=== PATIENT | male | born 1980 | race Caucasian/White ===

== ENCOUNTER 2017-02-03 15:38 | Emergency (ER) | payer OTHER ==
[2017-02-03 15:47] VITALS: BP 149/97; PULSE 104; TEMP 97.7; BMI 31.5
[2017-02-03] MEDS ORDERED: SODIUM CHLORIDE 1,000 ML IV STA (15:59)
[2017-02-03] MEDS ORDERED: PANTOPRAZOLE SODIUM 40 MG in SODIUM CHLORIDE 100 ML IVPB ONE (15:59)
[2017-02-03] MEDS ORDERED: ONDANSETRON 4 MG/2 ML VIAL IVPB ONE (15:59)
--- NOTE | 2017-02-03 16:00 | PDOC ---
History of Present Illness - History of Present Illness Initial Comments: 02/03/17 16:47 The patient is a 36 year old male, with a significant past medical history of cholecystectomy, who presents to the emergency department with nausea, vomiting , and diarrhea since yesterday.Patient is an employee here at [employer] and works in [employer]. He states that yesterday morning he began experiencing abdominal pain along with nausea, vomiting, and diarrhea. He did not go to bed until 5 am this morning. He states he last vomited around 11 am this morning and states that it was brown in color. He states that he currently feels very nauseous. He states that his last episode of diarrhea was around 2: 30pm and described it as very watery. He woke with this morning shaking with chills. He states that his cousin has also experienced similar symptoms 3 days ago. He denies any recent fevers,headache or dizziness. He denies any recent constipation. He denies any recent chest pain or shortness of breath. He denies any recent dysuria, frequency, urgency or hematuria. Allergies: NKA Family history: Paternal grandfather ( of stomach cancer), Paternal aunt: of breast cancer. Past surgical history: cholecystectomy (2 years ago) Social History: Former smoker. Occasional EtOH use. Denies recreational drug use. <Sonali Oliveros - Last Filed: 02/03/17 16:47> <Jovany Mosley - Last Filed: 02/05/17 07:47> - General Chief Complaint: Vomiting/Diarrhea Stated Complaint: N/V/D Time Seen by Provider: 02/03/17 15:50 Past History <Sonali Oliveros - Last Filed: 02/03/17 16:47> - Past Medical History COPD: No Other medical history: DENIES - Surgical History Cholecystectomy: Yes - Suicide/Smoking/Psychosocial Hx Smoking History: Never smoked Hx Alcohol Use: No Drug/Substance Use Hx: No Substance Use Type: Alcohol <Jovany Mosley - Last Filed: 02/05/17 07:47> - Past Medical History Allergies/Adverse Reactions: Allergies Allergy/AdvReac Type Severity Reaction Status Date / Time No Known Allergies Allergy Verified 02/03/17 15:38 Home Medications: Ambulatory Orders Ondansetron [Zofran Odt -] 4 mg SL TID PRN #10 od.tablet 02/03/17 Review of Systems - Review of Systems Comments:: 02/03/17 16:47 CONSTITUTIONAL: Present: chills Absent: fever, no fatigue EYES: Absent: visual changes ENT: Absent: ear pain, no sore throat CARDIOVASCULAR: Absent: chest pain, no palpitations RESPIRATORY: Absent: cough, no SOB GI: Present: abdominal pain, nausea, vomiting, diarrhea. Absent: no constipation GENITOURINARY: Absent: dysuria, no frequency, no hematuria MUSCULOSKELETAL: Absent: back pain, no arthralgia, no myalgia SKIN: Absent: rash <Sonali Oliveros - Last Filed: 02/03/17 16:47> *Physical Exam - Vital Signs Last Vital Signs Temp Pulse Resp BP Pulse Ox 97.7 F 104 H 16 149/97 100 02/03/17 15:39 02/03/17 15:39 02/03/17 15:39 02/03/17 15:39 02/03/17 15:39 - Physical Exam Comments: 02/03/17 16:48 GENERAL: Well developed, well nourished. Awake and alert. In no acute distress. HEENT: Normocephalic, atraumatic. PERRLA, EOMI. No conjunctival pallor. Sclera are non- icteric. Mildly dry mucous membranes. Oropharynx is clear. NECK: Supple. Full ROM. No JVD. Carotid pulses 2+ and symmetric, without bruits. No thyromegaly. No lymphadenopathy. CARDIOVASCULAR: Regular rate and rhythm. No murmurs, rubs, or gallops. PULMONARY: No evidence of respiratory distress. Lungs clear to auscultation bilaterally. No wheezing, rales or rhonchi. ABDOMINAL: Soft. Non-tender. Non-distended. No rebound or guarding. No organomegaly. Normoactive bowel sounds. : Unremarkable MUSCULOSKELETAL Normal range of motion at all joints. No bony deformities or tenderness. No CVA tenderness. EXTREMITIES: No cyanosis. No clubbing. No edema. No calf tenderness. SKIN: Warm and dry. Good turgor. Normal capillary refill. No rashes. No jaundice. NEUROLOGICAL: Alert, awake, appropriate. <Sonali Oliveros - Last Filed: 02/03/17 16:47> - Vital Signs Last Vital Signs Temp Pulse Resp BP Pulse Ox 97.7 F 104 H 16 149/97 100 02/03/17 15:39 02/03/17 15:39 02/03/17 15:39 02/03/17 15:39 02/03/17 15:39 <Jovany Mosley - Last Filed: 02/05/17 07:47> ED Treatment Course - LABORATORY CBC & Chemistry Diagram: 02/03/17 16:09 02/03/17 16:15 - Medications Given in the ED: ED Medications Discontinued Medications Generic Name Dose Route Start Last Admin Trade Name Leigha PRN Reason Stop Dose Admin Pantoprazole Sodium 40 mg/ 100 mls @ 200 mls/hr 02/03/17 15:59 02/03/17 16:09 Sodium Chloride IVPB 02/03/17 16:28 200 mls/hr ONCE ONE Administration Ondansetron HCl 4 mg 02/03/17 15:59 02/03/17 16:09 Zofran Injection IVPB 02/03/17 16:00 4 mg ONCE ONE Administration <Sonali Oliveros - Last Filed: 02/03/17 16:47> - LABORATORY CBC & Chemistry Diagram: 02/03/17 16:09 02/03/17 16:15 <Jovany Mosley - Last Filed: 02/05/17 07:47> Medical Decision Making - Medical Decision Making 02/03/17 17:17 Patient is much improved. No further nausea or vomiting or diarrhea. Abdominal pain is resolved. Abdomen remains soft and nontender To continue Zofran as needed, clear liquid diet to progress as tolerated, return to ER if pain returns, or if there is further unremitting nausea vomiting or diarrhea. <Jovany Mosley - Last Filed: 02/05/17 07:47> *DC/Admit/Observation/Transfer - Attestations Scribe Attestion: 02/03/17 16:49 Documentation prepared by Sonali Oliveros, acting as medical health researcher for Jovany Mcdonnell MD. <Sonali Oliveros - Last Filed: 02/03/17 16:47> - Discharge Dispostion Admit: No <Jovany Mosley - Last Filed: 02/05/17 07:47> Diagnosis at time of Disposition: Viral gastroenteritis - Discharge Dispostion Disposition: HOME Condition at time of disposition: Improved - Prescriptions Prescriptions: Ondansetron [Zofran Odt -] 4 mg SL TID PRN #10 od.tablet PRN Reason: Nausea And/Or Vomiting - Patient Instructions Printed Discharge Instructions: DI for Viral Gastroenteritis -- Adult - Post Discharge Activity Forms/Work/School Notes: Back to Work
[2017-02-03] MEDS ORDERED: ONDANSETRON 4 MG/2 ML VIAL ONE (16:03)
[2017-02-03] MEDS ORDERED: PANTOPRAZOLE SODIUM 40 MG VIAL ONE (16:03)
[2017-02-03 16:55] LABS: BASO % 0.1 % (0-2.0); EOS % 1.4 % (0-4.5); MCH 30.9 pg (25.7-33.7); MCHC 34.5 g/dl (32.0-35.9); MEAN CELL VOLUME 89.4 fl (80-96); MEAN PLT VOLUME 8.3 fl (7.5-11.1); NEUT % 72.5 % (42.8-82.8); PLATELET COUNT 387 K/MM3 (134-434); WHITE BLOOD COUNT 8.2 K/mm3 (4.0-10.8)
[2017-02-03 17:00] LABS: ALBUMIN 4.8 g/dl (3.5-5.0); ALK PHOS 75 U/L (32-92); ANION GAP 9 (8-16); CALCIUM 9.8 mg/dl (8.4-10.2); CO2 26 mmol/L (22-28); CREATININE 0.8 mg/dl (0.6-1.3); GLUCOSE,RANDOM 97 mg/dl (74-106); SGOT/AST 50 U/L (10-42); SGPT/ALT 67 U/L (10-40); TOT PROT 8.2 g/dl (6.4-8.3)
== END 2017-02-03 17:39 | disposition home or self-care (01) ==
LOC: FER 15:38
PROC: 3E033GC Introduction of Other Therapeutic Substance into Peripheral Vein, Percutaneous Approach (ICD-10-PCS; principal; 2017-02-03)
PROC: 3E0337Z Introduction of Electrolytic and Water Balance Substance into Peripheral Vein, Percutaneous Approach (ICD-10-PCS; 2017-02-03)
DX: A08.4 Viral intestinal infection, unspecified (principal)
CPT/HCPCS: 36415; 80053; 85025; 99281-25

== ENCOUNTER 2018-04-25 21:30 | Emergency (ER) | payer OTHER ==
[2018-04-25 21:49] VITALS: BP 137/98; PULSE 84; TEMP 97.7; BMI 32.5
--- NOTE | 2018-04-25 22:13 | PDOC ---
History of Present Illness - General History Source: Patient Exam Limitations: No Limitations - History of Present Illness Initial Comments: 04/25/18 22:38 The patient is a 37 year old male, with no significant PMH, who presents to the emergency department with a sore throat that began 4 days ago. The patient states he endorses associated symptoms of chills, dry throat, diarrhea, and bloody nose for 4 days, no relief with Tylenol. The patient states he went to his primary care 2 days ago and found no abnormal findings but patient reports sore throat progressively worsened today. The patient denies any sick contact or school age children. Denies chest pain, shortness of breath, headache and dizziness.Denies fever, nausea, vomit, and constipation. Allergies: NKDA Past surgical history: Cholecystectomy Social history: Former smoker (quit in 2008) and drinks alcohol occasionally PCP: Rogelio Butts <Sahara Gregory - Last Filed: 04/25/18 22:38> <Edna Shi - Last Filed: 04/26/18 03:33> - General Chief Complaint: Sore Throat Stated Complaint: SORE THROAT Time Seen by Provider: 04/25/18 21:38 Past History <Sahara Gregory - Last Filed: 04/25/18 22:38> - Past Medical History COPD: No - Surgical History Cholecystectomy: Yes - Suicide/Smoking/Psychosocial Hx Smoking History: Former smoker Have you smoked in the past 12 months: Yes If you are a former smoker, when did you quit?: 2008 Information on smoking cessation initiated: No Hx Alcohol Use: Yes (SOCIAL) Drug/Substance Use Hx: No Substance Use Type: Alcohol <Edna Shi - Last Filed: 04/26/18 03:33> - Past Medical History Allergies/Adverse Reactions: Allergies Allergy/AdvReac Type Severity Reaction Status Date / Time No Known Allergies Allergy Verified 04/25/18 21:34 Home Medications: Ambulatory Orders NK [No Known Home Medication] 04/25/18 Review of Systems - Review of Systems Able to Perform ROS?: Yes Comments:: 04/25/18 22:40 GENERAL/CONSTITUTIONAL:+chills. No weakness. HEAD, EYES, EARS, NOSE AND THROAT: +sore throat.No change in vision. No ear pain or discharge. CARDIOVASCULAR: No chest pain or shortness of breath. RESPIRATORY: No cough, wheezing, or hemoptysis. GASTROINTESTINAL: +diarrhea. No nausea, vomiting or constipation. GENITOURINARY: No dysuria, frequency, or change in urination. MUSCULOSKELETAL: No joint or muscle swelling or pain. No neck or back pain. SKIN: No rash NEUROLOGIC: No headache, vertigo, loss of consciousness, or change in strength/ sensation. ENDOCRINE: No increased thirst. No abnormal weight change. HEMATOLOGIC/LYMPHATIC: No anemia, easy bleeding, or history of blood clots. ALLERGIC/IMMUNOLOGIC: No hives or skin allergy. <Sahara Gregory - Last Filed: 04/25/18 22:38> *Physical Exam - Vital Signs Last Vital Signs Temp Pulse Resp BP Pulse Ox 97.7 F 84 16 137/98 97 04/25/18 21:33 04/25/18 21:33 04/25/18 21:33 04/25/18 21:33 04/25/18 21:33 - Physical Exam Comments: 04/25/18 22:42 GENERAL: Awake, alert, and fully oriented, in no acute distress HEAD: No signs of trauma EYES: PERRLA, EOMI, sclera anicteric, conjunctiva clear ENT: +erythema oropharynx.Auricles normal inspection, hearing grossly normal, nares patent. Moist mucosa NECK:+Lymph nodes to the bilateral anterior cervical neck. LUNGS: Breath sounds equal, clear to auscultation bilaterally. No wheezes, and no crackles HEART: Regular rate and rhythm, normal S1 and S2, no murmurs, rubs or gallops NEUROLOGICAL: Cranial nerves II through XII grossly intact. Normal speech, normal gait SKIN: Warm, Dry, normal turgor, no rashes or lesions noted. <Sahara Gregory - Last Filed: 04/25/18 22:38> - Vital Signs Last Vital Signs Temp Pulse Resp BP Pulse Ox 97.7 F 84 16 137/98 97 04/25/18 21:33 04/25/18 21:33 04/25/18 21:33 04/25/18 21:33 04/25/18 21:33 <Edna Shi - Last Filed: 04/26/18 03:33> Moderate Sedation - Procedure Monitoring Vital Signs: Procedure Monitoring Vital Signs Temperature 97.7 F 04/25/18 21:33 Pulse Rate 84 03/11/19 21:33 Respiratory Rate 16 04/25/18 21:33 Blood Pressure 137/98 04/25/18 21:33 O2 Sat by Pulse Oximetry (%) 97 04/25/18 21:33 <Sahara Gregory - Last Filed: 04/25/18 22:38> - Procedure Monitoring Vital Signs: Procedure Monitoring Vital Signs Temperature 97.7 F 04/25/18 21:33 Pulse Rate 84 04/25/18 21:33 Respiratory Rate 16 04/25/18 21:33 Blood Pressure 137/98 04/25/18 21:33 O2 Sat by Pulse Oximetry (%) 97 04/25/18 21:33 <Edna Shi - Last Filed: 04/26/18 03:33> Medical Decision Making - Medical Decision Making Documentation has been prepared under my direction and personally reviewed by me in its entirety. I attest that this documented accurately reflects all work, treatment, procedures and medical decision making performed by me. As noted above, this otherwise healthy 37-year-old man presents with a several day history of sore throat and subjective fever. Patient had been seen elsewhere and was told was a viral infection. He presents now because of persistence of the pain. No known strep pharyngitis contacts. Exam as noted. Quick strep/throat culture sent. Strep negative. Throat culture pending. Clinical presentation at this point most consistent with viral pharyngitis. Patient will be discharged with instructions to continue to drink plenty of fluids, to rest and to use analgesics/anti-inflammatory medications as needed for pain. He should return to the ER or see his PMD if he has persistent pain or fever. He will be called if the throat culture is positive for strep. <Edna Shi - Last Filed: 04/26/18 03:33> *DC/Admit/Observation/Transfer - Attestations Scribe Attestion: 04/25/18 22:42 Documentation prepared by Sahara Gregory, acting as medical advisor for Edna Shi MD. <Sahara Gregory - Last Filed: 04/25/18 22:38> <Edna Shi - Last Filed: 04/26/18 03:33> Diagnosis at time of Disposition: Acute pharyngitis Qualifiers: Pharyngitis/tonsillitis etiology: unspecified etiology Qualified Code(s): J02.9 - Acute pharyngitis, unspecified - Discharge Dispostion Disposition: HOME Condition at time of disposition: Stable - Referrals Referrals: Rogelio Butts MD [Primary Care Provider] - - Patient Instructions Printed Discharge Instructions: DI for Pharyngitis/Tonsillopharyngitis -- Adult Additional Instructions: Rest; drink plenty of fluids Alternate acetaminophen with ibuprofen/naproxen as needed for pain Return to ER if you have severe pain or persistent high fever Follow-up with Dr. Ramachandran within the next week We will call you and prescribed antibiotics if throat culture is positive for strep - Post Discharge Activity Forms/Work/School Notes: Back to Work
== END 2018-04-25 23:04 | disposition home or self-care (01) ==
LOC: FER 21:30
DX: J02.9 Acute pharyngitis, unspecified (principal); Z87.891 Personal history of nicotine dependence
CPT/HCPCS: 87070; 87880; 99281-25

== ENCOUNTER 2018-11-04 15:43 | Emergency (ER) | payer OTHER ==
[2018-11-04 15:49] VITALS: BP 136/98; TEMP 98.7; BMI 32.2
[2018-11-04] MEDS ORDERED: IBUPROFEN 600 MG TABLET (FP) PO ONE ×2 (16:05→16:06)
[2018-11-04] MEDS ORDERED: DEXAMETHASONE 4 MG TABLET (FP) PO ONE (16:08)
[2018-11-04] MEDS ORDERED: DEXAMETHASONE 4 MG TABLET (FP) ONE (16:09)
--- NOTE | 2018-11-04 16:16 | PDOC ---
Documentation entered by Angel Locke SCRIBE, acting as scribe for Concepcion Ochoa MD. Concepcion Ochoa MD: This documentation has been prepared by the Chucky dupont Daniel, SCRIBE, under my direction and personally reviewed by me in its entirety. I confirm that the documentation accurately reflects all work, treatment, procedures, and medical decision making performed by me. History of Present Illness - General Chief Complaint: Respiratory Stated Complaint: cough,sore throat and headache History Source: Patient Exam Limitations: No Limitations - History of Present Illness Initial Comments: 11/04/18 16:10 The patient is a 37 year old male with no past medical history here today for evaluation of cough and sore throat. The patient reports that he has had 3 days of cough, nasal congestion, and sore throat. He reports that he took nyquil with no relief. Patient denies headache, lightheadedness. Denies fever, chills. Denies chest pain, shortness of breath. Allergies: NKA Past History - Past Medical History Allergies/Adverse Reactions: Allergies Allergy/AdvReac Type Severity Reaction Status Date / Time No Known Allergies Allergy Verified 11/04/18 15:46 Home Medications: Ambulatory Orders Guaifenesin AC [Robitussin AC -] 5 ml PO QID PRN #60 ml MDD 20 mL 11/04/18 Triamcinolone Acetonide [Nasacort] 1 spray NS BID #1 bottle 11/04/18 COPD: No - Surgical History Cholecystectomy: Yes - Suicide/Smoking/Psychosocial Hx Smoking History: Former smoker Have you smoked in the past 12 months: Yes If you are a former smoker, when did you quit?: 2008 Hx Alcohol Use: Yes (SOCIAL) Drug/Substance Use Hx: No Substance Use Type: Alcohol Review of Systems - Review of Systems Able to Perform ROS?: Yes Comments:: 11/04/18 16:10 GENERAL/CONSTITUTIONAL: No fever or chills. No weakness. HEAD, EYES, EARS, NOSE AND THROAT: +nasal congestion. +sore throat. No change in vision. No ear pain or discharge. CARDIOVASCULAR: No chest pain or shortness of breath. RESPIRATORY: +cough. No wheezing, or hemoptysis. GASTROINTESTINAL: No nausea, vomiting, diarrhea or constipation. GENITOURINARY: No dysuria, frequency, or change in urination. MUSCULOSKELETAL: No joint or muscle swelling or pain. No neck or back pain. SKIN: No rash NEUROLOGIC: No headache, vertigo, loss of consciousness, or change in strength/ sensation. ENDOCRINE: No increased thirst. No abnormal weight change. HEMATOLOGIC/LYMPHATIC: No anemia, easy bleeding, or history of blood clots. ALLERGIC/IMMUNOLOGIC: No hives or skin allergy. *Physical Exam - Vital Signs Last Vital Signs Temp Pulse Resp BP Pulse Ox 98.7 F 101 H 19 136/98 99 11/04/18 15:44 11/04/18 15:44 11/04/18 15:44 11/04/18 15:44 11/04/18 15:44 - Physical Exam Comments: GENERAL: Awake, alert, and fully oriented, in no acute distress HEAD: No signs of trauma EYES: PERRLA, EOMI, sclera anicteric, conjunctiva clear ENT: Auricles normal inspection, hearing grossly normal. TMs bulging B/L with clear fluid. Nose with boggy turbinates and white thick discharge B/L. Oropharynx erythematous without exudates. Moist mucosa NECK: Normal ROM. +Anterior cervical lymphadenopathy. No JVD or masses LUNGS: Breath sounds equal, clear to auscultation bilaterally. No wheezes, and no crackles HEART: Regular rate and rhythm, normal S1 and S2, no murmurs, rubs or gallops ABDOMEN: Soft, nontender, normoactive bowel sounds. No guarding, no rebound. No masses EXTREMITIES: Normal range of motion, no edema. No clubbing or cyanosis. No cords, erythema, or tenderness NEUROLOGICAL: Cranial nerves II through XII grossly intact. Normal speech, normal gait. Motor and sensation intact SKIN: Warm, dry, normal turgor, no rashes or lesions noted. Medical Decision Making - Medical Decision Making Pt with viral upper respiratory infection- congestion, cough, pharyngeal erythema. No exudates. Will treat with decadron for throat irritation, nasacort for congestion, motrin for pain, and robitussin with codeine for cough. Lungs are clear. Stable for DC home. *DC/Admit/Observation/Transfer Diagnosis at time of Disposition: Upper respiratory infection Qualifiers: URI type: unspecified viral URI Qualified Code(s): J06.9 - Acute upper respiratory infection, unspecified - Discharge Dispostion Disposition: HOME Condition at time of disposition: Stable Decision to Admit order: No - Prescriptions Prescriptions: Guaifenesin AC [Robitussin AC -] 5 ml PO QID PRN #60 ml MDD 20 mL PRN Reason: Cough Triamcinolone Acetonide [Nasacort] 1 spray NS BID #1 bottle - Referrals - Patient Instructions Printed Discharge Instructions: DI for Viral Upper Respiratory Infection -- Adult - Post Discharge Activity Forms/Work/School Notes: Back to Work
[2018-11-04 16:25] VITALS: PULSE 97
== END 2018-11-04 16:19 | disposition home or self-care (01) ==
LOC: FER 15:43
DX: J06.9 Acute upper respiratory infection, unspecified (principal); Z87.891 Personal history of nicotine dependence
CPT/HCPCS: 99282-25

== ENCOUNTER 2022-01-05 20:04 | Emergency (ER) | payer OTHER ==
[2022-01-05 20:14] VITALS: BP 134/94; PULSE 92; RESP 16; TEMP 98.3; BMI 31.6
[2022-01-05] MEDS ORDERED: KETOROLAC TROMETHAMINE 60 MG/2 ML VIAL IM ONE (20:49)
[2022-01-05] MEDS ORDERED: KETOROLAC TROMETHAMINE 60 MG/2 ML VIAL ONE (20:52)
== END 2022-01-05 22:17 | disposition home or self-care (01) ==
LOC: FER 20:04
PROC: 3E0233Z Introduction of Anti-inflammatory into Muscle, Percutaneous Approach (ICD-10-PCS; principal; 2022-01-05)
DX: M54.12 Radiculopathy, cervical region (principal)
CPT/HCPCS: 72050-TC-FY; 99284-25

== ENCOUNTER 2022-10-02 15:27 | Emergency (ER) | payer OTHER ==
[2022-10-02 15:43] VITALS: BP 136/88; PULSE 76; RESP 16; TEMP 99.3; BMI 31.4
== END 2022-10-02 16:29 | disposition home or self-care (01) ==
LOC: FER 15:27
DX: H57.89 Other specified disorders of eye and adnexa (principal); R22.0 Localized swelling, mass and lump, head; H00.011 Hordeolum externum right upper eyelid
CPT/HCPCS: 99283-25

== ENCOUNTER 2023-08-01 01:14 | Emergency (ER) | payer OTHER ==
[2023-08-01 01:34] VITALS: BP 137/100; PULSE 98; RESP 18; TEMP 98.2; BMI 32.7
[2023-08-01] MEDS ORDERED: ACETAMINOPHEN 500 MG TABLET (FP) ONE (04:08)
[2023-08-01] MEDS: ACETAMINOPHEN 500 MG TABLET (FP) PO ONE (04:08)
== END 2023-08-01 04:10 | disposition home or self-care (01) ==
LOC: FER 01:14
DX: S09.90XA Unspecified injury of head, initial encounter (principal); W22.8XXA Striking against or struck by other objects, initial encounter
CPT/HCPCS: 70450-TC; 72125-TC; 99284-25